=== PATIENT | female | born 1990 | race Two or more races ===

== ENCOUNTER 2024-05-27 21:01 | Emergency (ER) | payer OTHER ==
[~2024-05-27] VITALS: Ht 160 cm; Wt 59.0 kg
[2024-05-27] MEDS ORDERED: PROAIR RESPICL90 MCG (21:14)
[2024-05-27] MEDS ORDERED: MONTELUKAST SODI4 M1 (21:14)
== END 2024-05-27 23:58 | disposition left against medical advice (07) ==
LOC: ER 21:02
DX: T67.01XA Heatstroke and sunstroke, initial encounter (principal); T67.5XXA Heat exhaustion, unspecified, initial encounter

== ENCOUNTER → 2024-05-30 | Emergency (ER) | payer OTHER ==
[~2024-05-30] VITALS: Ht 160 cm; Wt 54.4 kg
[~2024-05-30] MED LIST: MONTELUKAST SODI4 M1; PROAIR RESPICL90 MCG
== END | disposition left against medical advice (07) ==
LOC: ER 19:34
DX: Z53.21 Procedure and treatment not carried out due to patient leaving prior to being seen by health care provider (principal)